=== PATIENT | male | born 1970 | race Two or more races ===

== ENCOUNTER 2018-05-04 08:10 | Day surgery (SDC) | payer OTHER ==
[2018-05-04] VITALS (8 sets, daily range): BP systolic 120–147; BP diastolic 75–84
[~2018-05-04] VITALS: Ht 172.7 cm; Wt 96.2 kg
[~2018-05-04 08:10] MED LIST: Atropine Sulfate 0.4mg/ml inj IVP PRN; DiphenhydrAMINE 50mg/ml Inj IVP PRN; Midazolam 2mg/2ml Inj IVP PRN; fentaNYL 100 mcg/2 mL IV PRN
[2018-05-04] MEDS ORDERED: PROPRANOLOL HCL10 MG ORAL (09:11)
[2018-05-04] MEDS ORDERED: MELATONIN3 MG ORAL (09:12)
[2018-05-04] MEDS ORDERED: DOXEPIN HCL25 MG ORAL (09:13)
[2018-05-04] MEDS ORDERED: DONEPEZIL HCL10 M2 ORAL (09:14)
[2018-05-04] MEDS ORDERED: LEXAPRO10 MG ORAL (09:14)
[2018-05-04] MEDS ORDERED: HYDROCHLOROTHIA25 MG ORAL (09:18)
[2018-05-04] MEDS ORDERED: PREDNISOLONE ACE5 M1 OP (09:19)
[2018-05-04] MEDS ORDERED: ERYTHROMYCIN OPTH LEFT EYE (09:21)
[2018-05-04] MEDS ORDERED: MUPIROCIN22 GM TOPIC (09:23)
[2018-05-04] MEDS ORDERED: FLORANEX TABLE1 EAC1 PO (09:24)
[2018-05-04] MEDS ORDERED: ARTIFICIAL TEAR15 ML LEFT EYE (09:24)
[2018-05-04] MEDS ORDERED: OMEPRAZOLE40 M1 ORAL (09:25)
[2018-05-04] MEDS ORDERED: MI ACID SUSPEN355 M1 PO (09:26)
[2018-05-04] MEDS ORDERED: CREON DR 36,001 EACH PO (09:26)
[2018-05-04] MEDS ORDERED: LR 1000ml ONE (09:30)
[2018-05-04] MEDS ORDERED: Lidocaine 1% MPF 10mg/ml 5ml ONE (09:30)
[2018-05-04] MEDS ORDERED: Propofol 200mg/20ml IV ONE (09:30)
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
--- NOTE | 2018-05-04 09:41 | Pre-Procedure Note/Attestation ---
Pre-Procedure Note/Attestation Complete Prior to Procedure Planned Procedure: left Procedure Narrative: Examiantion of the upper and lower GI tract Indications for Procedure Pre-Operative Diagnosis: R/O Gastritis/colitis Attestation I attest that I discussed the nature of the procedure; its benefits; risks and complications; and alternatives (and the risks and benefits of such alternatives ), prior to the procedure, with the patient (or the patient's legal career representative). I attest that, if there was a reasonable possibility of needing a blood transfusion, the patient (or the patient's legal career representative) was given the [facility] standardized written summary, pursuant to the Olivier Jose Luis Blood Safety Act ([place] Health and Safety Code # 1645, as amended). I attest that I re-evaluated the patient just prior to the surgery and that there has been no change in the patient's H&P, except as documented below: Elijah Mccoy MD May 04, 2018 09:41
--- NOTE | 2018-05-04 10:16 | Endoscopy Procedure Note ---
Endoscopy Procedure Note General Indication for Procedure: Abdominal pains/nausea/vomiting/GERDs Procedures Performed: EGD - Mild/moderate gastritis, biopsis were obtained from gastric fundus and the antral areas., colonoscopy - Minimal internal hemorrhoids otherwise completely normal total colonoscopy. Specimen: yes Pt Tolerated Procedure Well: Yes Estimated Blood Loss: none Anesthesia Anesthesiologist: Dr. Buenrostro Anesthesia: moderate sedation Medications Medication Given: see anesthesia record Inserted Devices Implant(s) used?: No Quality Quality of Bowel Preparation: Excellent Did scope reach the cecum?: Yes Was there any complications?: No GI Core Measures 50 yrs or older w/o bx or poly: No 10yrs. F/U not recommended: No 10 yrs. F/U needed: Yes 18 years or older w/prev. colo: No <3yrs. since last colonoscopy: No Med reason:<3 yrs.: System Reason:<3 yrs.: Last colonoscopy >= to 3yrs: Yes Elijah Mccoy MD May 04, 2018 10:16
--- NOTE | 2018-05-04 10:16 | Discharge Instructions ---
Discharge Instructions Discharge Instructions Follow up with: Visit the doctor in office after 2 weeks, call first. For Congestive Heart Failure Reminder Report to your physician any weight gain of 5 pounds or more in one week. Elijah Mccoy MD May 04, 2018 10:16
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
--- NOTE | 2018-05-04 10:36 | Immediate Post-Op Evaluation ---
Immediate Post-Op Evalulation Immediate Post-Op Evalulation Procedure: egd/colonoscopy/bx Date of Evaluation: May 04, 2018 Time of Evaluation: 10:34 IV Fluids: 500ml lr Blood Products: none Estimated Blood Loss: negligible Blood Pressure Systolic: 133 Blood Pressure Diastolic: 70 Pulse Rate: 82 Respiratory Rate: 18 O2 Sat by Pulse Oximetry: 100 Temperature (Fahrenheit): 97.3 Pain Score (1-10): 0 Nausea: No Vomiting: No Complications none Patient Status: awake, reacts, patent Hydration Status: adequate Drug: Ana Luisa Miller MD May 04, 2018 10:36
--- NOTE | 2018-05-04 10:37 | 48 Hour Post Anesthesia Eval ---
Post Anesthesia Evaluation Procedure: egd/colonoscopy/bx Date of Evaluation: May 04, 2018 Time of Evaluation: 10:36 Blood Pressure Systolic: 128 0: 68 Pulse Rate: 82 Respiratory Rate: 18 Temperature (Fahrenheit): 97.3 O2 Sat by Pulse Oximetry: 100 Airway: patent Nausea: No Vomiting: No Pain Intensity: 0 Hydration Status: adequate Cardiopulmonary Status: stable Mental Status/LOC: patient returned to baseline Post-Anesthesia Complications: none Follow-up care needed: N/A Ana Luisa Buenrostro MD May 04, 2018 10:37
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
--- NOTE | 2018-05-04 17:46 | Operative Note - Dictated ---
DATE OF OPERATION: 05/04/2018 SURGEON: Elijah Mccoy M.D. PROCEDURE: Esophagogastroduodenoscopy with biopsy. PREOPERATIVE DIAGNOSIS: Abdominal pain, nausea, and vomiting. POSTOPERATIVE DIAGNOSIS: Moderate generalized gastritis. Biopsies were taken from the fundus of the stomach and gastric body. MEDICATION USED: Per Dr. Soler, anesthesiologist. INSTRUMENT: GIF Olympus video upper GI endoscope. DESCRIPTION OF PROCEDURE: The patient after arriving in the endoscopy unit, was told about risks and benefits of the procedure, which he accepted and signed informed consent. At this time, he was put in the left lateral decubitus position. After adequate IV sedation, the scope was gently passed through the cricopharyngeal area, was lodged into the upper esophagus and gradually advanced towards gastroesophageal junction. The entire length of the esophagus looked normal. There was no any evidence of pathology such as inflammatory process, stricture, polyps, tumors, etc. GE junction also looked normal. No evidence of Jones's or hiatal hernia. At this time, the scope was advanced into the stomach and the areas of the fundus and the body and the antrum of the stomach were examined closely. This revealed areas of inflammatory process consistent with moderate gastritis particularly over the fundus of the stomach and the body with enlarged folds. At this point, biopsies from the fundus and the body of the stomach was obtained and subsequently the scope was advanced towards the antrum. First and second portions of duodenum were found to be completely within normal limits. At this point, the scope was pulled out and the procedure was terminated. The patient tolerated the procedure well. Elijah Mccoy M.D. DR: ENRRIQUE JOB#: [id number] CC:
--- NOTE | 2018-05-04 18:02 | Operative Note - Dictated ---
DATE OF OPERATION: 05/04/2018 PROCEDURE: Total colonoscopy. PREOPERATIVE DIAGNOSIS: Abdominal pain. POSTOPERATIVE DIAGNOSIS: Minimal internal hemorrhoids, otherwise normal total colonoscopy. MEDICATION USED: Per Dr. Soler. INSTRUMENT: GIF Olympus video colonoscope. DESCRIPTION OF PROCEDURE: The patient after arriving an endoscopy unit, was told about risks and benefits of the procedure, which he accepted and signed informed consent. He was then put on the left lateral decubitus position. After adequate intravenous sedation, the scope was gently passed through the anal area and a retroflexion maneuver which was applied here revealed evidence of very minimal internal hemorrhoids of no great significance. The rest of the rectum looked normal. At this time, the scope was advanced into the descending colon, from there towards the splenic flexure, transverse colon, and hepatic flexure and guided into the right colon all the way to the base of the cecum. All these areas were also within normal limits. No pathological findings were noted. The colon cleanup was excellent. At this point, upon reaching to the base of the cecum, the scope was gradually pulled out within 7 minutes finding no other abnormalities. Procedure was terminated. The patient tolerated the procedure well and left the endoscopy room in a good condition. Said Prosper Mccoy DR: SEFERINO JOB#: [id number] CC:
== END 2018-05-04 11:30 | disposition home or self-care (01) ==
LOC: GAS 08:10
DX: K64.8 Other hemorrhoids (principal); K29.50 Unspecified chronic gastritis without bleeding; I10 Essential (primary) hypertension
CPT/HCPCS: 43239; 45378; J2704; 94003; 94150